=== PATIENT | female | born 1960 | race African-American/Black ===

== ENCOUNTER 2023-04-23 13:41 | Outpatient (RCR) | payer OTHER | END 2023-05-05 | LOC: WSOH | DX: S39.012D Strain of muscle, fascia and tendon of lower back, subsequent encounter (principal); S83.412D Sprain of medial collateral ligament of left knee, subsequent encounter; M76.52 Patellar tendinitis, left knee; I10 Essential (primary) hypertension; Y99.0 Civilian activity done for income or pay ==

== ENCOUNTER 2023-06-04 13:50 | Outpatient (RCR) | payer OTHER | END 2023-07-04 | LOC: WSOH → PT.GENESIS 14:00 | DX: S39.012D Strain of muscle, fascia and tendon of lower back, subsequent encounter (principal); S83.412D Sprain of medial collateral ligament of left knee, subsequent encounter; M76.52 Patellar tendinitis, left knee; I10 Essential (primary) hypertension; Y99.0 Civilian activity done for income or pay ==